=== PATIENT | female | born 1970 ===

== ENCOUNTER 2022-02-03 07:26 | Day surgery (SDC) | payer OTHER ==
[~2022-02-03] VITALS: Ht 157.5 cm; Wt 72.6 kg
== END 2022-02-03 12:05 | disposition home or self-care (01) ==
LOC: CIR.AMB 07:26
PROVIDERS: ATTEND Otolaryngology Otology & Neurotology
DX: H90.12 Conductive hearing loss, unilateral, left ear, with unrestricted hearing on the contralateral side (principal); H80.02 Otosclerosis involving oval window, nonobliterative, left ear; Z88.2 Allergy status to sulfonamides